=== PATIENT | male | born 1955 | race American Indian/Alaskan Native ===

== ENCOUNTER 2017-06-12 10:34 | Emergency (ER) | payer MEDICARE ==
[2017-06-12 10:47] VITALS: BP 130/82
[2017-06-12] MEDS ORDERED: TYLENOL PO ONE (12:57)
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
== END 2017-06-12 13:15 | disposition home or self-care (01) ==
LOC: ED 10:34
DX: M54.5 Low back pain (principal); G89.29 Other chronic pain; I10 Essential (primary) hypertension; E11.9 Type 2 diabetes mellitus without complications; G62.9 Polyneuropathy, unspecified; Z87.891 Personal history of nicotine dependence
CPT/HCPCS: 99283